=== PATIENT | female | born 1955 | race Caucasian/White ===

== ENCOUNTER 2019-10-02 09:53 | Outpatient (CLI) | payer OTHER, SELFPAY ==
--- NOTE | 2019-10-02 09:54 | MM_ITS ---
WS: [id number] SCREENING DIGITAL MAMMOGRAM WITH CAD HISTORY: SCREENING COMPARISON: 05/17/2018 and 01/09/2015 Bilateral CC and MLO views submitted. Computer aided detection analyzed. Breast composition: The breasts are almost entirely fatty. No suspicious masses, microcalcifications or architectural distortion. MM/[id number] IMPRESSION: BI-RADS: 1-Negative FOLLOW UP: 1 Year Follow-up
== END 2019-10-02 09:54 | disposition home or self-care (01) ==
LOC: RADSHAW 09:53
PROVIDERS: Family Provider Family Medicine; PCP Family Medicine; Visit Provider Family Medicine
DX: Z12.31 Encounter for screening mammogram for malignant neoplasm of breast (principal)
CPT/HCPCS: 77067

== ENCOUNTER 2020-09-10 10:38 | Outpatient (CLI) | payer OTHER, SELFPAY ==
--- NOTE | 2020-09-10 10:47 | XR_ITS ---
WS: [id number] Exam: XR cervical spine 3V* [id number] Date/Time of Exam: 09/10/2020 10:47 AM Reason For Exam: PAIN No acute fracture or dislocation. Mild degenerative anterolisthesis of C4 on C5 with about [address] movement of C4. Facet DJD at all levels. Degenerative disc narrowing at C5-6 and C6-7. The odontoi d is intact. Paraspinal soft tissues appear normal. XR/XR cervical spine 3V* [id number] IMPRESSION: 1. No acute fracture or dislocation. 2. Degenerative changes. 3. Mild degenerative anterolisthesis of C4 on C5 with about 3 mm forward moveme nt of C4.
--- NOTE | 2020-09-10 10:48 | XR_ITS ---
WS: [id number] Exam: XR hand RT 2V [id number] Date/Time of Exam: 09/10/2020 10:48 AM Reason For Exam: PAIN No acute fracture or dislocation. Advanced degenerative changes of the DIP joints of all digits. Also moderately advanced degenerative changes noted involving the PIP joints. Soft tissues appear normal. XR/XR hand RT 2V [id number] IMPRESSION: 1. No fracture or dislocation. 2. Advanced degenerative changes in the IP joints of the hand as detailed above .
== END 2020-09-10 10:39 | disposition home or self-care (01) ==
PROVIDERS: PCP Family Medicine; Visit Provider Dermatology
DX: M54.2 Cervicalgia (principal); M25.541 Pain in joints of right hand
CPT/HCPCS: 72040; 73120

== ENCOUNTER 2020-12-11 09:00 | Outpatient (CLI) | payer OTHER, SELFPAY ==
--- NOTE | 2020-12-11 09:14 | XR_ITS ---
WS: [id number] Left hip, AP and frog leg views, 12/11/2020 Clinical Data: L HIP PAIN/GOUT/ARTHRITIS Comparison: None. Findings: No new fractures or dislocations are seen. The hip joint is intact. The soft tissues are not remarkab le. The adjacent pelvis is normal. There is an old fracture of the midshaft of left femur. XR/XR hip LT 2-3V wo/w pel* [id number] Impression: Negative left hip.
== END 2020-12-11 09:01 | disposition home or self-care (01) ==
PROVIDERS: PCP Family Medicine; Visit Provider Family Medicine
DX: M25.552 Pain in left hip (principal); M10.9 Gout, unspecified; M16.12 Unilateral primary osteoarthritis, left hip
CPT/HCPCS: 73502

== ENCOUNTER 2020-12-22 10:02 | Emergency (ER) | payer OTHER, SELFPAY ==
[2020-12-22 10:05] VITALS: BP 129/76; PULSE 65; RESP 16; TEMP 36.4; O2SAT 97; BMI 35.2
--- NOTE | 2020-12-22 10:12 | CT_ITS ---
WS: [id number] CT ABDOMEN AND PELVIS WITH CONTRAST HISTORY: LEFT upper quadrant pain with nausea. TECHNIQUE: Imaging performed of the abdomen and pelvis with IV contrast. Single phase imaging of the abdomen. Coronal and sagittal reformats are submitted. All CT scans at [facility] use at least one of these dose optimization techniques: automated exposure control; mA and/or kV adjustment per patient size (includes targeted exams where dose is matched to clinical indication); or iterativ e reconstruction. IV CONTRAST: Omnipaque 300; 95 mL IV. Oral contrast: No DLP: 1870.45 mGy.cm COMPARISON: None available. Lower thorax: Lung bases are clear. Heart is normal size. No hiatal hernia. Liver/biliary system: Mild hepatic steatosis. No mass or bile duct dilatation. Gallbladder: Normal. No gallstones or wall thickening. No pericholecystic fluid. Pancreas: Normal. Spleen: Normal. Adrenal glands: Normal. Right kidney: Normal size kidney. There are a few scattered very nonspecific hypodensities in the cor michael of the mid to lower kidney. Cannot be further evaluated due to the very small size. No obstructio n or calcification. Left kidney: A few scattered hypodensities. No obstruction or mass. Aorta: Mild atherosclerosis with no aneurysm. Lymphadenopathy: None. Free fluid: None. GI tract: Normal appendix. There is a very short segment of wall thickening involving the proximal de scending colon, image 34 series 2. This could represent a very early neoplastic stricture. Abdominal wall: Fat-containing umbilical hernia. Pelvis: Prior hysterectomy. Minimally distended bladder. Bones: Unremarkable. CT/CT abdomen pelvis w con* [id number] IMPRESSION: 1. No acute abdominal or pelvic abnormalities. 2. There are a few scattered very nonspecific hypodensities in each kidney whi ch may be too small to characterize cysts. No obstruction. 3. Very short segment narrowing and wall thickening involving the proximal alexandrea cending colon. Could represent a very early neoplastic stricture or be postinfl ammatory or secondary to contraction. Colonoscopy may be necessary for further evaluation if pain continues. 4. Negative gallbladder. 5. Atherosclerosis aorta. 6. Normal appendix. 7. Prior hysterectomy. 8. Hepatic steatosis.
[2020-12-22 10:18] VITALS: BP 129/75; PULSE 65; RESP 25; O2SAT 97
--- NOTE | 2020-12-22 10:20 | ED_ITS ---
HPI - Abdominal Pain General: Chief Complaint: Abdominal Pain Stated Complaint: EPIGASTRIC PAIN Time Seen by Provider: 12/22/20 10:05 History of Present Illness: HPI narrative: 65-year-old female comes in had a sudden sharp epigastric left upper quadrant pain that resolved spontaneously. Began a couple hours after she woke up she was in the process of making some breakfast got nauseous and diaphoretic and then it suddenly resolved by the time the paramedics had come in. She did not have any chest pain she denies any vomiting or diarrhea with it but got very nauseous. She not previously had episodes like this. No recent medication changes no recent illness she denies fever sweats chills difficulty breathing. MD elicited complaint: abdominal pain Onset (ago): hour(s) Pain Consistency: intermittent, now resolved and colicky Location: Epigastric and LUQ Severity: moderate Quality: cramping Radiation: none Migration to: no migration Exacerbating factors: nothing Relieving factors: nothing Associated Symptoms: Denies anorexia, belching, bloating, change in bowel habits, change in stool character, chills, coffee ground emesis, constipation, GI cramping, diarrhea, dyspepsia, dysuria, excessive flatus, fever(s), heartburn, hematochezia, hematuria, hematemesis, fecal incontinence, loose stools, melena, nausea, poor appetite, syncope and vomiting Review of Systems Const: Denies: chills ENMT: Denies: throat pain, ear or mastoid pain, nasal discharge or nasal congestion Card: Denies: syncope Resp: Denies: dyspnea, productive cough or non-productive cough GI: Denies: nausea, vomiting, hematemesis, coffee ground emesis, heartburn, diarrhea, constipation, bloating, GI cramping, belching, excessive flatus, fecal incontinence, change in bowel habits, change in stool character, hematochezia or melena : Denies: dysuria or hematuria Skin/Breast: Denies: rash or pruritus PFSH ED PFSH: Social History Smoking and tobacco status: never smoked Alcohol intake: never Substance/Drug Use: never Physical Exam Const: COMMON NORMALS: no acute distress GENERAL APPEARANCE: cooperative and comfortable ORIENTATION/CONSCIOUSNESS: Yes awake, Yes oriented to person, Yes oriented to place and Yes oriented to time HENMT: COMMON NORMALS: normocephalic, atraumatic and hearing grossly normal bilaterally HEAD & SCALP: normocephalic and atraumatic Eye: COMMON NORMALS: Equal, round and reactive pupils present, EOMs intact bilaterally, conjunctivae normal and no scleral icterus CONJUNCTIVA: Yes conjunctivae normal PUPIL: Yes Equal, round and reactive pupils present Neck/C-Spine: COMMON NORMALS: full ROM, no lymphadenopathy, supple and no JVD Lymph: LYMPHATIC: no lymphadenopathy noted and no lymphedema noted Resp: COMMON NORMALS: normal respiratory effort, No retractions, No use of accessory muscles and clear to auscultation bilaterally AUSCULTATION: clear to auscultation bilaterally Cardio: COMMON NORMALS: no JVD, regular rate, regular rhythm and No murmurs present (Cardio) RATE: regular rate RHYTHM: regular rhythm GI: COMMON NORMALS: Soft to palpation and No hepatosplenomegaly present AUSCULTATION: Yes normoactive bowel sounds PALPATION: Yes Soft to palpation, No Tenderness to palpation present (GI), No Guarding due to palpation present (GI) and Yes No hepatosplenomegaly present Extremity: COMMON NORMALS: normal to inspection, capillary refill normal, no clubbing, cyanosis or edema, no calf tenderness and no pedal edema Neuro: SENSORIUM/ORIENTATION: Yes oriented to person, Yes oriented to place and Yes oriented to time Skin: COMMON NORMALS: no rashes or lesions noted GENERAL SKIN EXAM: no rashes or lesions noted Course Vital Signs: Vital signs: Vital Signs Temperature 97.6 F 12/22/20 10:05 Pulse Rate 65 12/22/20 10:18 Respiratory Rate 25 H 12/22/20 12:06 Blood Pressure 139/79 12/22/20 12:06 Pulse Oximetry 99 12/22/20 12:06 MDM - Abdominal Pain MDM Narrative: Medical decision making narrative: Pt has mild abnormality in the colon, however pt had normal colonosocpy with in the last 1 1-1/2 yrs. She has not had any hematochezia or melena. SHe is not having any fiuther symptoms. WIll d/c home - folow up as needed. Return if she has further symtpoms. Lab Data: Labs: Lab Results 12/22/20 12/22/20 12/22/20 Range/Units 10:00 10:00 10:22 WBC 6.3 (4.0-10.0) 10^3/ uL RBC 4.98 (4.1-5.3) 10^6/u L Hgb 15.2 (11.5-15.3) g/dL Hct 46.0 (37.0-47.0) % MCV 92.4 (81-99) fL MCH 30.5 (28.0-34.0) pg MCHC 33.0 (30.0-36.0) g/dL RDW 13.0 (12.1-15.1) % Plt Count 253 (130-400) 10^3/c mm MPV 10.4 (7.4-10.4) fL Neut % (Auto) 46.4 % Lymph % (Auto) 38.9 % Mcleod % (Auto) 9.4 % Eos % (Auto) 3.5 % Baso % (Auto) 1.3 % Neut # (Auto) 2.91 (1.8-7.7) 10^3/u L Lymph # (Auto) 2.4 (0.8-4.8) 10^3/u L Mcleod # (Auto) 0.6 (0.2-0.9) 10^3/u L Eos # (Auto) 0.2 (0.0-0.8) 10^3/u L Baso # (Auto) 0.1 (0.0-0.1) 10^3/u L Nucleated RBC % (a uto) 0 % Nucleated RBCs # 0.0 /100WBC Sodium 140 (136-145) mmol/L Potassium 4.1 (3.5-5.1) mmol/L Chloride 100 (98-107) mmol/L Carbon Dioxide 26 (22-29) mmol/L Anion Gap 18.1 (5-19) BUN 14 (8-23) mg/dL Creatinine 0.5 (0.5-0.9) mg/dL GFR Calculation 124.6 (90-130) mL/min Glucose 179 H (65-115) mg/dL Calculated Osmolal ity 295 (285-295) mOsm/k g Calcium 9.0 (8.5-10.5) mg/dL Total Bilirubin 0.4 (0.15-1.2) mg/dL AST 29 (0-32) U/L ALT 28 (0-33) U/L Alkaline Phosphata se 79 (35-105) IU/L Total Protein 6.9 (6.6-8.7) g/dL Albumin 4.5 (3.5-5.2) g/dL Globulin 2.4 (1.3-4.6) g/dL Lipase 84 H (13-60) U/L Urine Color Yellow (Yellow) Urine Appearance Clear (CLEAR) Urine pH 7 (5-7) Ur Specific Gravit y 1.010 (1.005-1.030) Urine Protein Neg (Negative) Urine Glucose (UA) Norm (Normal) Urine Ketones Negative (Negative) Urine Blood Neg (Negative) Urine Nitrate Negative (Negative) Urine Bilirubin Neg (Negative) Urine Urobilinogen Norm (Negative) mg/dL Ur Leukocyte Alehtea ase Negative (Negative) Discharge Plan Discharge Patient Disposition: Home Clinical Impression: Abdominal pain Condition: Stable Prescriptions: No Action multivitamin Tablet 1 tab PO QAM RF: 0 metformin 500 mg tablet 500 mg PO BID RF: 0 Zyrtec 10 mg Tablet 10 mg PO DAILY RF: 0 aspirin 325 mg Tablet 325 mg PO QAM RF: 0 metoprolol tartrate 100 mg tablet 100 mg PO BID RF: 0 allopurinol 100 mg tablet 100 mg PO QAM RF: 0 Tylenol Extra Strength 500 mg Tablet 1,000 mg PO PRN RF: 0 amlodipine 10 mg tablet 10 mg PO QAM RF: 0 losartan 100 mg tablet 100 mg PO QAM RF: 0 Discharge Orders: Discharge ED (Routine); Ordered 12/22/20 Ordered By: Mor Daniel Referrals: Jim Au MD [Primary Care Provider] - Patient Instructions: Abdominal Pain (ED), Opioid Safety Coding Level of Care Code ED Artificial Breeding Technician for Chg Fwd Exam Comprehensive
[2020-12-22] MEDS: sodium chloride 0.9% 1,000 ML 999 ML IV (10:27)
[2020-12-22 10:29] LABS: Basophils # 0.1 10^3/uL (0.0-0.1); Basophils % 1.3 %; Eosinophils # 0.2 10^3/uL (0.0-0.8); Eosinophils % 3.5 %; Hemoglobin 15.2 g/dL (11.5-15.3); Lymphocytes # 2.4 10^3/uL (0.8-4.8); Lymphocytes % 38.9 %; Mean Corpuscular Hemoglobin 30.5 pg (28.0-34.0); Mean Corpuscular Volume 92.4 fL (81-99); Mean Platelet Volume 10.4 fL (7.4-10.4); Monocytes # 0.6 10^3/uL (0.2-0.9); Monocytes % 9.4 %; Neutrophils # 2.91 10^3/uL (1.8-7.7); Neutrophils % 46.4 %; Nucleated Red Blood Cells % 0 %; Platelet Count 253 10^3/cmm (130-400); Red Blood Count 4.98 10^6/uL (4.1-5.3); White Blood Count 6.3 10^3/uL (4.0-10.0)
[2020-12-22 10:34] LABS: Alanine Aminotransferase 28 U/L (0-33); Albumin Level 4.5 g/dL (3.5-5.2); Alkaline Phosphatase 79 IU/L (35-105); Anion Gap 18.1 (5-19); Aspartate Amino Transferase 29 U/L (0-32); Blood Urea Nitrogen 14 mg/dL (8-23); Carbon Dioxide 26 mmol/L (22-29); Chloride 100 mmol/L (98-107); Globulin 2.4 g/dL (1.3-4.6); Glomerular Filtration Rate 124.6 mL/min (90-130); Glucose 179 mg/dL (65-115); Lipase 84 U/L (13-60); Osmolality Calculated 295 mOsm/kg (285-295); Potassium 4.1 mmol/L (3.5-5.1); Sodium 140 mmol/L (136-145); Total Bilirubin 0.4 mg/dL (0.15-1.2); Total Protein 6.9 g/dL (6.6-8.7)
[2020-12-22 10:40] LABS: Add Urine Microscopic? NO; Charge for UA Resulting for Rev
[2020-12-22 11:39] LABS: Bilirubin Urine Neg (Negative); Blood Urine Neg (Negative); Glucose Urine UA Norm (Normal); Ketones Urine Negative (Negative); Leukocyte Esterase Urine Negative (Negative); Nitrate Urine Negative (Negative); Protein Urine Neg (Negative); Urine Appearance Clear (CLEAR); Urine Color Yellow (Yellow); Urobilinogen Urine Norm (Negative); pH Urine 7 (5-7)
[2020-12-22 12:06] VITALS: BP 139/79; RESP 25; O2SAT 99
[2020-12-22] MEDS: iohexol 300 mg/mL 100 mL Btl IV (12:06)
[2020-12-22 13:50] VITALS: BP 136/78; PULSE 67; RESP 196; O2SAT 93
== END 2020-12-22 13:51 | disposition home or self-care (01) ==
PROVIDERS: Emergency Provider Family Medicine; PCP Family Medicine
DX: R10.9 Unspecified abdominal pain (principal); Z79.82 Long term (current) use of aspirin; Z79.84 Long term (current) use of oral hypoglycemic drugs
CPT/HCPCS: 74177; 80053; 81003; 83690; 85025; 96360; 99283; J7030; Q9967

== ENCOUNTER 2021-05-08 08:13 | Outpatient (CLI) | payer OTHER, SELFPAY ==
--- NOTE | 2021-05-08 08:21 | MM_ITS ---
WS: [id number] Exam: [place] [id number] Date/Time of Exam: 05/08/2021 8:22 AM Reason For Exam: SCREENING VIEWS: MLO and CC views both breasts. Comparison made with prior exam of 01/09/2015, 05/17/2018 and 10/02/2019. Findings: There was no sign of mass, architectural distortion or suspicious calcification in either breast. Fa tty MM/[place] [id number] Impression: BI-RADS: 2-Benign FOLLOW-UP: 1 Year Follow-up This mammogram was also analyzed by the Computer Aided Detection System R2 Imag e Apartment Leasing Specialist.
== END 2021-05-08 08:14 | disposition home or self-care (01) ==
LOC: RADSHAW 08:18
PROVIDERS: PCP Family Medicine; Visit Provider Family Medicine
DX: Z12.31 Encounter for screening mammogram for malignant neoplasm of breast (principal)
CPT/HCPCS: 77067

== ENCOUNTER 2021-06-05 10:41 | Outpatient (CLI) | payer OTHER, SELFPAY ==
[2021-06-05 10:56] VITALS: BP 151/89; PULSE 74; RESP 18; TEMP 36.8; O2SAT 95; BMI 34.4
[2021-06-05 11:22] VITALS: BP 119/82; PULSE 18; RESP 18; TEMP 36.8; O2SAT 94
[2021-06-05 12:18] VITALS: BP 128/86; PULSE 70; RESP 18; TEMP 36.9; O2SAT 96
--- NOTE | 2021-06-15 17:52 | PC.SOCIAL ---
101, 4147 antibody infusion follow up call symptoms prior to infusion, coughing, really bad head cold, dizziness, confusion patient reports she is much better, very little cough, some sinus drainage.
== END 2021-06-05 10:42 | disposition home or self-care (01) ==
LOC: OPS 10:47
PROVIDERS: PCP Family Medicine; Visit Provider Family Medicine
DX: U07.1 COVID-19 (principal)
CPT/HCPCS: 96365

== ENCOUNTER → 2022-09-29 11:02 | Outpatient (BNVA) | payer MEDICARE, SELFPAY | PROVIDERS: PCP Family Medicine; Visit Provider Family Medicine | DX: E78.5 Hyperlipidemia, unspecified (principal); M10.9 Gout, unspecified; I10 Essential (primary) hypertension; E11.9 Type 2 diabetes mellitus without complications | CPT/HCPCS: 80053; 80061; 83036; 84550; 85025 ==

== ENCOUNTER → 2023-03-16 10:00 | Outpatient (BNVA) | payer MEDICARE, SELFPAY | PROVIDERS: PCP Family Medicine; Visit Provider Family Medicine | DX: M10.9 Gout, unspecified (principal); E11.9 Type 2 diabetes mellitus without complications; I10 Essential (primary) hypertension | CPT/HCPCS: 80053; 80061; 83036; 84550 ==

== ENCOUNTER 2024-04-30 06:00 | Outpatient (CLI) | payer MEDICARE, SELFPAY | END 2024-04-30 06:01 | disposition home or self-care (01) | LOC: SLEEP 05-18 09:09 | PROVIDERS: PCP Family Medicine; Visit Provider Family Medicine | DX: F32.A Depression, unspecified (principal); N95.1 Menopausal and female climacteric states; E11.9 Type 2 diabetes mellitus without complications | CPT/HCPCS: 80053; 83036; 83880; 84443; 85025; 86140 ==

== ENCOUNTER 2025-03-12 10:26 | Outpatient (CLI) | payer MEDICARE, SELFPAY ==
--- NOTE | 2025-03-12 10:32 | XR_ITS ---
WS: [id number] XR cervical spine fl/ex [id number] REASON FOR EXAM: chronic neck pain FINDINGS: Slight reversal of normal lordosis in the lower cervical spine. No significant compression deformity or focal lesion of the cervical vertebrae. Moderate narrowing of the C5-C6 and C6-C7 disc spaces with mild to moderate subchondral sclerosis of the endplates and mild anterior and posterior osteophytosis. 10 mm of anterolisthesis of C4 on C5. 1 to 2 mm of anterolisthesis of C5 on C6. There is mild accentuation of these listheses with flexion and mild reduction with extension. No other significant vertebral body movement with flexion or extension. Moderate degenerative arthropathy in the facet joints most notably C2-C4. XR/XR cervical spine fl/ex [id number] IMPRESSION: Significant degenerative spondylosis of the cervical spine as above.
== END 2025-03-12 10:27 | disposition home or self-care (01) ==
PROVIDERS: PCP Family Medicine; Visit Provider Family Medicine
DX: M43.12 Spondylolisthesis, cervical region (principal); G89.29 Other chronic pain; M47.892 Other spondylosis, cervical region; M50.322 Other cervical disc degeneration at C5-C6 level; M50.323 Other cervical disc degeneration at C6-C7 level; M25.78 Osteophyte, vertebrae; R93.7 Abnormal findings on diagnostic imaging of other parts of musculoskeletal system
CPT/HCPCS: 72040

== ENCOUNTER 2025-03-13 09:51 | Outpatient (CLI) | payer MEDICARE, SELFPAY ==
--- NOTE | 2025-03-13 10:00 | MM_ITS ---
WS: [id number] BILATERAL SCREENING DIGITAL TOMOSYNTHESIS MAMMOGRAM WITH CAD HISTORY: screening COMPARISON: 05/08/2021, 05/17/2018 Bilateral CC and MLO views with tomosynthesis and synthetic mammography submitted. Computer aided detection analyzed. Breast composition: The breasts are almost entirely fatty. No suspicious masses, microcalcifications or architectural distortion. Benign calcification anterior LEFT breast. MM/MM scr BI tomosynthesis [id number] IMPRESSION: BI-RADS: 2 - Benign. FOLLOW UP: 1 Year Follow-up
== END 2025-03-13 09:52 | disposition home or self-care (01) ==
LOC: RAD 09:52
PROVIDERS: PCP Family Medicine; Visit Provider Family Medicine
DX: Z12.31 Encounter for screening mammogram for malignant neoplasm of breast (principal); R92.313 Mammographic fatty tissue density, bilateral breasts; R92.1 Mammographic calcification found on diagnostic imaging of breast
CPT/HCPCS: 77063; 77067

== ENCOUNTER → 2025-04-09 12:05 | Outpatient (BNVA) | payer MEDICARE, SELFPAY | PROVIDERS: PCP Family Medicine; Visit Provider Family Medicine | DX: E11.65 Type 2 diabetes mellitus with hyperglycemia (principal); I10 Essential (primary) hypertension; E78.2 Mixed hyperlipidemia | CPT/HCPCS: 80053; 80061; 82043; 83036; 84439; 84443; 85025 ==

== ENCOUNTER 2025-04-23 10:18 | Outpatient (RCR) | payer MEDICARE, SELFPAY | END 2025-05-12 23:59 | disposition home or self-care (01) | LOC: SPT 10:18 | PROVIDERS: Visit Provider Family Medicine | DX: M43.12 Spondylolisthesis, cervical region (principal); M54.2 Cervicalgia; G89.29 Other chronic pain | CPT/HCPCS: 97110; 97161 ==

== ENCOUNTER 2025-05-13 06:30 | Outpatient (RCR) | payer MEDICARE, SELFPAY | END 2025-06-11 23:59 | disposition home or self-care (01) | LOC: SPT 06:30 | PROVIDERS: PCP Family Medicine; Visit Provider Family Medicine | DX: M43.12 Spondylolisthesis, cervical region (principal) | CPT/HCPCS: 97110 ==

== ENCOUNTER 2025-05-20 15:10 | Outpatient (CLI) | payer MEDICARE, SELFPAY ==
--- NOTE | 2025-05-20 15:30 | XR_ITS ---
WS: [id number] SCREENING DEXA SCAN [facility] CLINICAL INFORMATION: postmenopausal COMPARISON: None. FINDINGS: The L1-L4 bone mineral density measures 1.258 g/cm2. This corresponds to a T score score of 0.7 and Z score of 1.2. Left femoral neck bone mineral density measures 1.067 g/cm2. This corresponds to a T score of 0.5 and Z score of 1.1. Right femoral neck bone mineral density measures 1.048 g/cm2. This corresponds to a T score 0.3of and Z score of 0.9. Mean femoral neck bone mineral density measures 1.058 g/cm2. This corresponds to a T score of 0.4 and Z score of 1.0. XR/XR DEXA axial skeleton* [id number] IMPRESSION: Normal bone mineralization. Patient's FRAX calculated 10 year probability for major osteoporotic fracture i s 7.0% and osteoporotic hip fracture is 0.4%.
== END 2025-05-20 15:11 | disposition home or self-care (01) ==
LOC: RAD 15:11
PROVIDERS: PCP Family Medicine; Visit Provider Family Medicine
DX: Z78.0 Asymptomatic menopausal state (principal)
CPT/HCPCS: 77080

== ENCOUNTER 2025-06-17 11:23 | Outpatient (CLI) | payer MEDICARE, SELFPAY ==
--- NOTE | 2025-06-17 11:28 | XR_ITS ---
WS: [id number] Left hip, 2 views, AP pelvis, 06/17/2025 Clinical Data: left hip pain--chronic--has had surgery on femur fx Comparison: Left hip, 12/11/2020 Findings: There is narrowing of the left hip joint with no irregularity of the left femoral head. There is slight sclerosis of the left acetabulum. There is an old fracture of the midshaft of the left femur. The right hip shows mild narrowing. The SI joints and pubic symphysis are unremarkable. XR/XR hip LT 2-3V wo/w pel* [id number] Impression: Mild osteoarthritis of the left hip.
== END 2025-06-17 11:24 | disposition home or self-care (01) ==
LOC: RAD 11:25
PROVIDERS: PCP Family Medicine; Visit Provider Family Medicine
DX: M25.552 Pain in left hip (principal); G89.29 Other chronic pain; M16.12 Unilateral primary osteoarthritis, left hip; Z87.81 Personal history of (healed) traumatic fracture
CPT/HCPCS: 73502